=== PATIENT | female | born 1990 | race Caucasian/White ===

== ENCOUNTER 2019-05-02 10:40 | Outpatient (CLI) | payer OTHER ==
[~2019-05-02] VITALS: Ht 172.7 cm; Wt 88.0 kg
[2019-05-02] MEDS ORDERED: PRENTAB9 PO (10:54)
[2019-05-02 11:16] VITALS: BP 127/76
[2019-05-02 11:23] VITALS: BP 121/68
[2019-05-02] MEDS ORDERED: LACTATED RINGER'S 1000 ML IV STA (11:26)
[2019-05-02 11:40] LABS: APPEARANCE, URINE CLEAR (CLEAR); BACTERIA, URINE AUTO 1+ (NEGATIVE); BILIRUBIN, URINE AUTO NEGATIVE (NEGATIVE); BLOOD, URINE BLOOD NEGATIVE (NEGATIVE); COLOR, URINE STRAW (YELLOW); GLUCOSE, URINE (UA) AUTO NEGATIVE (NEGATIVE); KETONE, URINE AUTO NEGATIVE (NEGATIVE); LEUKOCYTE ESTERASE, URINE AUTO NEGATIVE (NEGATIVE); NITRITE, URINE AUTO NEGATIVE (NEGATIVE); PROTEIN, URINE AUTO NEGATIVE (NEGATIVE); RBC, URINE AUTO 0 /HPF (0-3); SPECIFIC GRAVITY URINE AUTO 1.005 (1.002-1.035); SQUAMOUS EPITHELIAL CELL UR AU 0 /HPF (0-6); UROBILINOGEN, URINE AUTO 0.2 mg/dL (0.0-2.0); WBC, URINE AUTO 0 /HPF (0-3)
[2019-05-02 11:55] LABS: CREATININE,RANDOM URINE 22.3 MG/DL; TOTAL PROTEIN,RANDOM URINE < 5.0 MG/DL (0.0-12.0)
[2019-05-02 12:20] LABS: HEMATOCRIT 35.5 % (36.0-47.0); HEMOGLOBIN 11.9 g/dl (12.0-15.5); MEAN CORPUSCULAR HEMOGLOBIN 28.8 pg (27.0-33.0); MEAN CORPUSCULAR HGB CONC 33.5 g/dl (32.0-36.5); PLATELET COUNT, AUTOMATED 203 10^3/uL (150-450); RED BLOOD COUNT 4.13 10^6/uL (4.00-5.40); WHITE BLOOD COUNT 11.8 10^3/uL (4.0-10.0)
[2019-05-02 12:35] LABS: ALT/SGPT 15 U/L (12-78); BILIRUBIN,TOTAL 0.2 MG/DL (0.2-1.0); CREATININE FOR GFR 0.59 MG/DL (0.55-1.30); GLOMERULAR FILTRATION RATE > 60.0 (>60); LDH LACTATE DEHYDROGENASE 227 U/L (84-246); URIC ACID 4.4 MG/DL (2.6-6.0)
[2019-05-02 12:37] VITALS: BP 130/64
--- NOTE | 2019-05-02 18:11 | IPNPDOC ---
Obstetrical Progress Note Date of Service May 02, 2019 Subjective Late entry. 29yo at 39+2wks sent from clinic r/o Pre-Eclampsia. Pt was seen for KIRK and noted to have 4x mild range BPs, asymptomatic. Pt's has thus far been uncomplicated, GBS Negative. Upon arrival to triage, pt reports +FM, denies LOF/VB/CTX. She denies SAUCEDO, visual disturbances or RUQ pain. Objective O: VSS, BPs normotensive (121-130/64-76), afebrile FHR Tracing: Initially, FHR tachycardic and unable to determine baseline; fetus very active during monitoring, both by palpation, audible, and pt report Pt received 1L LR bolus and FHR settled on baseline of 135 with moderate variability, + accels, no decels; tracing reviewed with Dr. Felder Irregular contractions after LR bolus started, pt feeling uncomfortable VE: C/L/H (chaperoned by DARRYL Wright) Pre-E labs collected and all WNL Vital Signs Date Time Temp Pulse Resp B/P (MAP) Pulse Ox O2 Delivery O2 Flow Rate FiO2 05/02/19 12:37 77 130/64 (86) 05/02/19 11:23 18 05/02/19 11:16 98.7 99 Assessment and Plan Status: Reassuring Group B Streptococcus: Negative Additional Comments A: 29yo at 39+2wks with WNL Pre-E labs and reassuring status, Category I FHT Pt possibly in early labor P: Pt discharged home with strict Pre-E precautions Pt to f/u in clinic on Monday for repeat BP check; has KIRK scheduled for 40+2wks on Labor/danger/return precautions reviewed CODY GUTIERREZ CNM May 02, 2019 18:11
== END 2019-05-02 14:12 | disposition home or self-care (01) ==
LOC: M LDO 10:40
PROVIDERS: ATTEND Registered Nurse Maternal Newborn
DX: Z36.89 Encounter for other specified antenatal screening (principal); O26.893 Other specified pregnancy related conditions, third trimester; R03.0 Elevated blood-pressure reading, without diagnosis of hypertension; Z3A.39 39 weeks gestation of pregnancy
CPT/HCPCS: 59025; 81001; 82247; 82565; 82570; 83615; 84156; 84450; 84460; 84550; 85027; G0378; G0463

== ENCOUNTER 2019-05-04 05:42 | Inpatient (IN) | payer OTHER ==
[~2019-05-04] VITALS: Ht 172.7 cm; Wt 87.9 kg
[2019-05-04] VITALS (46 sets, daily range): BP systolic 87–166; BP diastolic 46–103
[~2019-05-04 05:42] MED LIST: PRENTAB9 PO
[2019-05-04] MEDS ORDERED: LACTATED RINGER'S 1000 ML IV STA (06:16)
[2019-05-04 06:50] LABS: HEMATOCRIT 34.4 % (36.0-47.0); HEMOGLOBIN 11.6 g/dl (12.0-15.5); MEAN CORPUSCULAR HEMOGLOBIN 28.9 pg (27.0-33.0); MEAN CORPUSCULAR HGB CONC 33.7 g/dl (32.0-36.5); MEAN CORPUSCULAR VOLUME 85.6 fl (80.0-96.0); PLATELET COUNT, AUTOMATED 196 10^3/uL (150-450); RED BLOOD COUNT 4.02 10^6/uL (4.00-5.40); WHITE BLOOD COUNT 13.4 10^3/uL (4.0-10.0)
[2019-05-04] MEDS ORDERED: FENTANYL 2MCG/ML ROPIVACAINE 0.2% IN 0.9% NACL 100ML IVBAG As Ordered ONE (07:36)
[2019-05-04] MEDS: LR 1,000 ML IV SCH ×3 (07:45→15:44)
[2019-05-04] MEDS: FENTANYL/ROPIVACAINE/NACL BAG 100 ML EPIDURAL SCH ×2 (07:53→15:38)
[2019-05-04] MEDS ORDERED: ePHEDrine SULFATE 25 MG/5 ML(5MG/ML) SYRINGE As Ordered ONE (07:56)
[2019-05-04] MEDS: ePHEDrine SULFATE 25 MG/5 ML(5MG/ML) SYRINGE IV PRN ×3 (07:58→08:29)
[2019-05-04] MEDS ORDERED: EPIDURAL COMMENT XX SCH (08:45)
[2019-05-04] MEDS ORDERED: ONDANSETRON 4MG/2ML VIAL (J2405) IV PRN (08:45)
[2019-05-04] MEDS ORDERED: REFRIGERATOR IV KEYS XX PRN (08:45)
[2019-05-04] MEDS ORDERED: NALOXONE INJ 0.4 MG/1 ML VIAL (J2310) IV PRN (08:45)
[2019-05-04] MEDS ORDERED: EPIDURAL/PCA KEYS XX PRN (08:45)
[2019-05-04] MEDS ORDERED: LACTATED RINGER'S 1000 ML IV PRN (08:45)
[2019-05-04] MEDS ORDERED: diphenhydrAMINE INJ 50MG/ML VIAL (J1200) IV PRN (08:45)
--- NOTE | 2019-05-04 09:56 | HPEPDOC ---
Obstetrical History & Physical General Date of Admission May 04, 2019 at 06:38 Primary Care Physician: VALARIE IVERSON DO History of Present Illness patient is a 29 yo @ 39+4wks by sure lmp c/w 1st trimester US DONNA() presents with regular painful contractions. she was checked to be 4-5cm. Admitted and had epidural placed for pain management. Currently without concerns. Chief Complaint: Contractions, term Information Provided By: Patient Age: 29 : 2 Term: 1 Livin Care Care: Good Care Dating Final EDC: May 07, 2019 Final EDC for Daily Update: May 07, 2019 Final EDC by: LMP, 1st trimester (US) LMP: Jul 31, 2018 ([id number]) Antepartum Course Diagnos(e)s uncomplicated Past Medical History Past Obstetrical History : Past Obstetrical History: Primgravida Type of Delivery: Spontaneous Vaginal Del. 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 History: Human papillomavirus(HPV), History of STD, Other (LAURA in 2007) Past Medical History Surgical History: Other (LAURA 2007) Family History Significant Family History: No pertinent family hx Social History Marital Status: Psychosocial History: No pertinent psych hx * Smoker: non-smoker Alcohol: Denies Drugs: denies Abuse Violence Screening Have you been hit/kicked/slapp: No Have you been sexually assault: No Imunizations Tdap status: current Influenza Status: needs Allergies Coded Allergies: Penicillins (Verified Allergy, Mild, HIVES, 05/02/19) Medications Scheduled No.137/Iron/Folic Acd ( Vitamin Tablet) 1 Each Tablet, 1 TAB PO DAILY Physical Examination Physical Examination GENERAL: Alert and oriented times three. ABDOMEN: Gravid and non-tender to touch. FETUS: fetus is vertex (VTX) by Dean. HEART: s1s2 s m/g/c LUNGS: Clear to auscultation (CTA). EXTREMITIES: No edema/erythema/tenderness Vital Signs/I&O Vital Signs Date Time Temp Pulse Resp B/P (MAP) Pulse Ox O2 Delivery O2 Flow Rate FiO2 05/04/19 06:03 98.6 91 18 129/71 (90) Laboratory Data 24H LABS Laboratory Tests 2 05/04/19 06:39: Nucleated Red Blood Cells % (auto) 0.0 CBC/BMP Laboratory Tests 05/04/19 06:39 Red Blood Count 4.02, Mean Corpuscular Volume 85.6, Mean Corpuscular Hemoglobin 28.9, Mean Corpuscular Hemoglobin Concent 33.7, Red Cell Distribution Width 13.2 Pertinent Laboratoy Data Blood Type: O+ RBC Antibody Screen: Negative HIV: Negative Hepatitis B: Negative Rapid Plasma Reagin: Nonreactive Rubella: Immune Varicella: Immune Chlamydia/Gonorrhea: Negative Group B Streptococcus: Negative Anatomy Ultrasound Ultrasound Date: December 18, 2018 Placenta Location: Posterior Normal Anatomy: Yes Placenta Previa: No Vaginal Examination Dilation: 5 cm Effacement: 70% Station: -2 Presentation: Cephalic presentation Assessment Heart Rate (FHR): 135 Variability: Moderate Accelerations: Positive Decelerations: None Tocometer Contractions: Yes Frequency: regular, every 2-5 min. Assessment/Plan Assessment patient is a 29 yo @ 39+4wks gestation in labor. Plan Admit to l&d for labor. 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 Diet: CLEAR Group B Streptococcus (GBS) [negative]. Labs and intravenous (IV) per unit protocol. Counseled on Pitocin and induction of labor (IOL). Anticipate [normal spontaneous delivery ()]. C-S as appropriate. Labor and Delivery Counseling Discussed risk of emergent delivery, infection, vaginal laceration, episiotomy, operative vaginal delivery (forceps/vacuum), bleeding requiring blood transfusion. VALARIE IVERSON DO May 04, 2019 09:56
[2019-05-04] MEDS ORDERED: OXYTOCIN 30 UNITS IN 0.9% NaCl 500ML IV BAG (J2590) As Ordered ONE (12:25)
--- NOTE | 2019-05-04 13:37 | IPNPDOC ---
Text Note Date of Service The patient was seen on 05/04/19. NOTE patient is comfortable with epidural, feeling pressure. vitals: normal NAD fht: 135/mod jeannie/pos accel/no decel toco: ctx q 2-3mins ce: anterior lip/90/0, arom attempt to reduce anterior lip for patient to start pushing. She pushed for about 15minutes, recheck and shows anterior lip had come back. a/p patient in active labor, will recheck in 1-2hrs. start pushing when patient is complete. DO [place] VS,[place], I+O VS, Fishbone, I+O Laboratory Tests 05/04/19 06:39 Red Blood Count 4.02, Mean Corpuscular Volume 85.6, Mean Corpuscular Hemoglobin 28.9, Mean Corpuscular Hemoglobin Concent 33.7, Red Cell Distribution Width 13.2 Vital Signs Date Time Temp Pulse Resp B/P (MAP) Pulse Ox O2 Delivery O2 Flow Rate FiO2 05/04/19 12:07 90 137/78 (97) 05/04/19 11:39 20 05/04/19 11:27 98.5 05/04/19 08:33 98 VALARIE IVERSON DO May 04, 2019 13:37
--- NOTE | 2019-05-04 14:56 | IPNPDOC ---
Text Note Date of Service The patient was seen on 05/04/19. NOTE patient feeling pressure to push. fht: cat I toco: ctx q 2-3mins ce: c/c/+2. patient in second stage, start pushing. DO [place] VS,[place], I+O VS, Fishbone, I+O Laboratory Tests 05/04/19 06:39 Red Blood Count 4.02, Mean Corpuscular Volume 85.6, Mean Corpuscular Hemoglobin 28.9, Mean Corpuscular Hemoglobin Concent 33.7, Red Cell Distribution Width 13.2 Vital Signs Date Time Temp Pulse Resp B/P (MAP) Pulse Ox O2 Delivery O2 Flow Rate FiO2 05/04/19 12:07 90 137/78 (97) 05/04/19 11:39 20 05/04/19 11:27 98.5 05/04/19 08:33 98 VALARIE IVERSON DO May 04, 2019 14:56
[2019-05-04] MEDS ORDERED: OXYTOCIN DRIP 30 UNITS in IV 1 EA IV SCH (16:18)
[2019-05-04] MEDS ORDERED: RHOGAM 300 MCG (1500 IU) INJ (J2790) IM SCH (16:30)
[2019-05-04] MEDS ORDERED: MEASLES,MUMPS,RUBELLA VACCINE INJ (MMR-II) (90707) SC SCH (16:30)
[2019-05-04] MEDS ORDERED: DOCUSATE SODIUM 100 MG CAP PO PRN (16:30)
[2019-05-04] MEDS ORDERED: DIBUCAINE 1% OINTMENT 30GM TOP PRN (16:30)
--- NOTE | 2019-05-04 16:49 | DNPDOC ---
[facility] Delivery Note Delivery Note DATE OF DELIVERY: 04May2019 PREDELIVERY DIAGNOSIS: 39+ weeks' gestation and labor. POST DELIVERY DIAGNOSIS: Delivered. 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 FINDINGS: [8] pound [1] ounce (3660gm) , Score [7]/[9], nuchal cord times [1]. DELIVERY SUMMARY: Patient pushed at c/c/+2 station. Baby checked to be LOT. Baby rotated OA. With good maternal effort, baby delivered OA, Restituted ROT. Nuchal cord x 1, reduced. Anterior shoulder delivered followed by posterior shoulder, body followed with ease. baby placed on maternal abdomen, cord allowed to stop pulsating. cord clamped x 2 and cut by FOB. pitocin bolus started. placenta delivered spontaneously, fundus massaged firm. inspection revealed no laceration. sponge count correct x 2. ebl 250cc. baby and mother bonding when I left the room. DO KISHOR Lindo LUAT N. DO May 04, 2019 16:49
[2019-05-04] MEDS ORDERED: SLF 3 ML SYR IV PRN (17:45)
[2019-05-04] MEDS: IBUPROFEN 800 MG TAB PO PRN (18:34)
--- NOTE | 2019-05-04 19:46 | IPNPDOC ---
Text Note Date of Service The patient was seen on 05/04/19. NOTE come to assess patient due to concern for vaginal swelling. patient has not urinate since delivery. she is able to ambulate now, and tried recently and unable to urinate. 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 no vaginal bulge palpation, no concern for hematoma at this point. discussed with patient and nurse to continue with icepack and motrin for pain as needed. will place wong overnight while waiting for edema to improve. plan to remove wong in AM and wait for spontaneous void. DO KISHOR VS,Fishbone, I+O VS, Fishbone, I+O Laboratory Tests 05/04/19 06:39 Red Blood Count 4.02, Mean Corpuscular Volume 85.6, Mean Corpuscular Hemoglobin 28.9, Mean Corpuscular Hemoglobin Concent 33.7, Red Cell Distribution Width 13.2 Vital Signs Date Time Temp Pulse Resp B/P (MAP) Pulse Ox O2 Delivery O2 Flow Rate FiO2 05/04/19 18:39 92 20 137/87 (104) 05/04/19 18:00 98.2 98 VALARIE IVERSON DO May 04, 2019 19:46
[2019-05-04] MEDS: SLF 3 ML SYR IV SCH (21:29)
[2019-05-04] MEDS ORDERED: PERCOCET 5MG/325MG TAB PO ONE (21:45)
[2019-05-05] MEDS: SLF 3 ML SYR IV SCH ×3 (05:34→22:16)
[2019-05-05 06:00] VITALS: BP 119/76
[2019-05-05] MEDS: IBUPROFEN 800 MG TAB PO PRN ×2 (06:43→14:55)
--- NOTE | 2019-05-05 08:20 | IPNPDOC ---
Progress Note Date of Service: May 05, 2019 Day#: 1 Progress Note SUBJECT: patient is a 29 yo S/P ppd #1. wong placed back due to difficulty voiding and labial swelling. patient is amublating, and tolerating po without problem. today. Desires NorQD for contraceptive. 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 Heart rate: Regular rate and rhythm, no murmurs, rubs or gallops. Abdomen: Fundus firm at U-2. Soft, NTTP. labia minora swelling improved lochia minimal ASSESSMENT: patient is ppd #1, doing well. PLAN: 1. Wong out this AM with due to void in 4-6hrs 2. encourage bf and ambulating 3. norqd for contraceptive 4. routine pp care 5. dc home today pending voiding freely. DO iglesia VS, I&O, 24H, Fishbone Vital Signs/I&O Vital Signs Date Time Temp Pulse Resp B/P (MAP) Pulse Ox O2 Delivery O2 Flow Rate FiO2 05/05/19 06:00 98.2 78 16 119/76 (90) 98 I&O- Last 24 Hours up to 6 AM 05/05/19 05:59 Intake Total 4220 ml Output Total 4677 ml Balance -457 ml Laboratory Data 24H LABS Laboratory Tests 2 05/04/19 16:37: Serology Scanned Report Hepatitis B Testing VALARIE IVERSON DO May 05, 2019 08:20
[2019-05-05] MEDS: PRENATAL VITAMINS CHEWABLE TABLET PO SCH (10:03)
[2019-05-05 18:03] VITALS: BP 139/77
[2019-05-06] MEDS: IBUPROFEN 800 MG TAB PO PRN (05:14)
[2019-05-06 06:11] VITALS: BP 129/84
[2019-05-06] MEDS: PRENATAL VITAMINS CHEWABLE TABLET PO SCH (08:19)
--- NOTE | 2019-05-06 08:28 | IPNPDOC ---
Progress Note Date of Service: May 06, 2019 Day#: 2 Progress Note SUBJECT: patient is a 29 yo S/P ppd #2. patient is amublating, urina ting and tolerating po without problem today. breast feeding without problem. Desires NorQD for contraceptive. 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 Abdomen: Fundus firm at U-2. Soft, NTTP. labia minora swelling resolved lochia minimal ASSESSMENT: patient is ppd #2, doing well. PLAN: 1. discharge home today 2. encourage bf and ambulating 3. norqd for contraceptive 4. routine pp care iglesia, DO VS, I&O, 24H, Fishbone Vital Signs/I&O Vital Signs Date Time Temp Pulse Resp B/P (MAP) Pulse Ox O2 Delivery O2 Flow Rate FiO2 05/06/19 06:11 98.3 69 20 129/84 (99) 100 I&O- Last 24 Hours up to 6 AM 05/06/19 05:59 Output Total 1600 ml Balance -1600 ml VALARIE IVERSON DO May 06, 2019 08:28
--- NOTE | 2019-05-06 08:29 | OBDS ---
[facility] Obstetrical Discharge Sum. 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 She progressed to deliver vaginally. course uncomplicated and she meets discharge criteria on day #2. VALARIE IVERSON DO May 04, 2019 16:54
[2019-05-06] MEDS ORDERED: INFLUENZA QUADRIVALENT PF VACCINE 0.5ML SYRINGE (90686) IM ONE (10:00)
== END 2019-05-06 12:55 | disposition home or self-care (01) | DRG 807 ==
LOC: M LDO 05:42 → M LDI 06:38 → M OBS 19:30
PROVIDERS: ADMIT Obstetrics & Gynecology; ATTEND Obstetrics & Gynecology
PROC: 10E0XZZ Delivery of Products of Conception, External Approach (ICD-10-PCS; principal; 2019-05-04)
DX: O69.81X0 Labor and delivery complicated by cord around neck, without compression, not applicable or unspecified (principal); Z37.0 Single live birth; Z3A.39 39 weeks gestation of pregnancy